=== PATIENT | female | born 1955 | race African-American/Black ===

== ENCOUNTER 2019-10-09 12:31 | Outpatient (CLI) | payer OTHER, SELFPAY ==
--- NOTE | 2019-10-09 | ECHO_ITS ---
Patient Info Name: Juani Hough Age: 64 years : 1955 Gender: Female Ht: 64 in Wt: 211 lbs BSA: 2.12 m2 HR: 74 bpm BP: 116 / 74 mmHg Technical Quality: Good Exam Date: 10/09/2019 1:31 PM Exam Location: [facility] Patient Status: Outpatient Admit Date: 10/09/2019 Staff Ordering Physician: PHYSICIAN NOT ON STAFF, NONSTAFF [employer] Apprentice: Katt Blackmon RDCS Attending Provider: PHYSICIAN NOT ON STAFF, NONSTAFF Exam Type: CA echo doppler color flow Study Info Indications - copd pulm htn Complete two-dimensional, color flow and Doppler transthoracic echocardiogram is performed. Summary 1. Left ventricular chamber dimension is normal. 2. Left ventricular systolic function is normal, estimated at 65-70%. 3. The left ventricular diastolic function is normal. 4. E/e' 9 is minimally elevated. 5. No pulmonary hypertension, estimated pulmonary arterial systolic pressure is 28 mmHg. 6. There is trace pulmonic regurgitation. Left Ventricle E/e' 9 is minimally elevated. Left ventricular chamber dimension is normal. Left ventricular systolic function is normal, estimated at 65-70%. The left ventricular diastolic function is normal. Right Ventricle Right ventricular chamber dimension is normal. Right ventricular systolic function is normal. Left Atria Left atrial chamber dimension is normal. Right Atria Right atrial chamber dimension is normal. Aortic Valve The aortic valve is probable trileaflet. There is no aortic valve stenosis. There is no aortic valve regurgitation. Pulmonic Valve There is trace pulmonic regurgitation. Mitral Valve There is no mitral valve stenosis. There is no mitral valve regurgitation. Tricuspid Valve There is no tricuspid valve regurgitation. No pulmonary hypertension, estimated pulmonary arterial systolic pressure is 28 mmHg. Pericardium/Pleural There is no pericardial effusion. Inferior Vena Cava Normal inferior vena cava with >50% collapse upon inspiration consistent with normal right atrial pressure, 5 mmHg. Aorta The aortic root size at the sinus of Valsalva is normal. Left Ventricular Outflow Tract Name Value Normal LVOT 2D LVOT Diameter 2.0 cm LVOT Doppler LVOT Peak Gradient 2 mmHg LVOT Mean Gradient 1 mmHg LVOT VTI 17 cm LVOT VTI/AV VTI Ratio 0.9 LVOT Stroke Volume 55 ml LVOT CO 10.6 l/min LVOT CI 5.0 l/min/m2 Pulmonic Valve Name Value Normal PV Doppler PV Peak Gradient 3 mmHg Mitral Valve Name Value Normal
== END 2019-10-09 12:32 | disposition home or self-care (01) ==
DX: I27.20 Pulmonary hypertension, unspecified (principal)
CPT/HCPCS: 93306